=== PATIENT | female | born 1945 | race Caucasian/White ===

== ENCOUNTER 2018-04-01 22:27 | Inpatient (IN) | payer OTHER, MEDICARE ==
[2018-04-01 22:47] LABS: PLATELET COUNT 358 10^3/uL (150-400)
[2018-04-01 23:00] LABS: INR 0.91 (0.83-1.16); PROTIME(PATIENT) 12.5 SEC (12.0-15.0)
--- NOTE | 2018-04-01 23:02 | CPEKG ---
Heart Rate: 67 RR Interval: 896 P-R Interval: 252 QRSD Interval: 100 QT Interval: 416 QTC Interval: 439 P [place]: 56 QRS [place]: -23 T Wave [place]: 30 EKG Severity - ABNORMAL ECG - EKG Impression: SINUS RHYTHM EKG Impression: FIRST DEGREE AV BLOCK EKG Impression: BORDERLINE LEFT AXIS DEVIATION Electronically Signed By: Wade Antoine 02-Apr-2018 06:04:29
--- NOTE | 2018-04-01 23:03 | EDPHY ---
H & P Stated Complaint: STROKE ALERT Time Seen by Provider: 04/01/18 22:39 HPI/ROS: Chief Complaint: Facial droop, slurred speech HPI: 72-year-old woman with history of diabetes who is been in her normal state health. This evening at 10:00 p.m. Family noticed the patient developed a left facial droop and developed some slurred speech. The immediately put her in the car and brought her to the emergency department. They state that her symptoms have improved but she still seems to have a bit of garbled speech. This did occur shortly after she took her evening medications. No recent falls or injuries. She is not on any anticoagulation. No chest pain or shortness of breath. No palpitations. No nausea or vomiting. Symptoms began after she was out walking the dog. Patient currently is without complaint. ROS: 10 point Review of Systems is negative except as noted in the HPI. Social History: No smoking, no alcohol, no recreational drug use Family History: non-contributory Physical Exam: Gen: Awake, Alert, No Distress HEENT: Nose: no rhinorrhea Eyes: PERRLA, EOMI Mouth: Moist mucosa Neck: Supple, no JVD Chest: nontender, lungs clear to auscultation Heart: S1, S2 normal, no murmur Abd: Soft, non-tender, no guarding Back: no CVA tenderness, no midline tenderness Ext: no edema, non-tender Skin: no rash Neuro: See NIH stroke score - Personal History Current Tetanus/Diphtheria Vaccine: Yes Current Tetanus Diphtheria and Acellular Pertussis (TDAP): Yes - Medical/Surgical History Hx Asthma: No Hx Chronic Respiratory Disease: No Hx Diabetes: Yes Hx Cardiac Disease: Yes Hx Renal Disease: No Hx Cirrhosis: No Hx Alcoholism: No Other PMH: Diabetes, hypertension,BILAT MASSECTOMY - Social History Smoking Status: Former smoker Constitutional: Initial Vital Signs Temperature (C) 36.6 C 04/01/18 22:27 Heart Rate 70 04/01/18 22:27 Respiratory Rate 18 04/01/18 22:27 Blood Pressure 176/83 H 04/01/18 22:27 O2 Sat (%) 92 04/01/18 22:27 O2 Delivery Mode Room Air Allergies/Adverse Reactions: No Known Allergies Allergy (Unverified 04/01/18 22:40) Home Medications: Medication Instructions Recorded Atorvastatin Calcium [Lipitor 20 20 mg PO HS 02/21/16 mg (*)] Fenofibrate [Tricor 145 mg (*)] 145 mg PO HS 02/21/16 Metformin HCl [Metformin 1000 mg] 1,000 mg PO BIDMEAL 02/21/16 Metoprolol Tartrate [Lopressor 25 25 mg PO BID 02/21/16 mg (*)] buPROPion XL [Wellbutrin 150mg XL] 150 mg PO DAILY 02/21/16 Aspirin [Aspirin 81mg (*)] 81 mg PO DAILY #0 tab.chew 02/22/16 Insulin Glargine [Lantus] 0 unit SC HS 04/01/18 Metoprolol Succinate 50 mg PO 04/01/18 Valsartan [Diovan (*)] 160 mg PO DAILY 04/01/18 Medical Decision Making - Diagnostics EKG Interpretation: ECG time 2300, sinus rhythm with a rate of 67. There is a first-degree AV block. Borderline left axis deviation. No acute ST or T-wave changes. Imaging Results: Imaging Impressions Chest X-Ray 04/01/18 22:32 Impression: No acute localizing features. Head CT 04/01/18 22:32 Impression: There is no acute intracranial abnormality identified on this unenhanced CT evaluation. If there is further clinical concern regarding the patient's symptoms, MR imaging is suggested, if not otherwise contraindicated. Findings were discussed with Wade Antoine MD at 23:16, on 04/01/2018. ED Course/Re-evaluation: Patient arrived as a possible stroke alert. Her NIH score on my immediate examination was 1. Stroke alert was stood down by me. Patient went for noncontrast CT of the brain. At this time she has some perhaps mild dysarthria speech, otherwise negative NIH exam. Blood sugar was in the 200s. Plan will be to check for laboratory evaluations, confirm noncontrast CT scan of the head. If these are normal likely admission for MRI and Neurology consultation as an inpatient. [address] Symptoms have completely resolved. She is at her baseline. She is without complaint. 2320 CT scan of the head is negative. I have discussed with Dr. Apodaca. Patient's PCP. He will admit to the hospital for further workup. - Data Points Laboratory Results: Laboratory Results 04/01/18 22:35 04/01/18 22:35 04/01/18 04/01/18 04/01/18 22:36 22:35 22:35 WBC RBC Hgb POC Hgb 14.3 gm/dL gm/dL (12.6-16.3) Hct POC Hct 42 % % (38-47) MCV MCH MCHC RDW Plt Count MPV Neut % (Auto) Lymph % (Auto) Mills % (Auto) Eos % (Auto) Baso % (Auto) Nucleat RBC Rel Count Absolute Neuts (auto) Absolute Lymphs (auto) Absolute Monos (auto) Absolute Eos (auto) Absolute Basos (auto) Absolute Nucleated RBC Immature Gran % Immature Gran # PT 12.5 SEC SEC (12.0-15.0) INR 0.91 (0.83-1.16) POC Sodium 143 mEq/L mEq/L (135-145) Sodium 142 mEq/L mEq/L (135-145) POC Potassium 4.2 mEq/L mEq/L (3.3-5.0) Potassium 4.5 mEq/L mEq/L (3.3-5.0) POC Chloride 102 mEq/L mEq/L (97-110) Chloride 103 mEq/L mEq/L (97-110) Carbon Dioxide 27 mEq/l mEq/l (22-31) Anion Gap 12 mEq/L mEq/L (8-16) POC BUN 34 mg/dL H mg/dL (7-23) BUN 34 mg/dL H mg/dL (7-23) Creatinine 1.5 mg/dL H mg/dL (0.6-1.0) POC Creatinine 1.7 mg/dL H mg/dL (0.6-1.0) Estimated GFR 34 Glucose 211 mg/dL H mg/dL (70-100) POC Glucose 225 mg/dL H mg/dL (70-100) Calcium 10.1 mg/dL mg/dL (8.5-10.4) 04/01/18 04/01/18 22:35 22:34 WBC 10.60 10^3/uL H 10^3/uL (3.80-9.50) RBC 4.65 10^6/uL 10^6/uL (4.18-5.33) Hgb 13.6 g/dL g/dL (12.6-16.3) POC Hgb Hct 41.9 % % (38.0-47.0) POC Hct MCV 90.1 fL fL (81.5-99.8) MCH 29.2 pg pg (27.9-34.1) MCHC 32.5 g/dL g/dL (32.4-36.7) RDW 14.4 % % (11.5-15.2) Plt Count 358 10^3/uL 10^3/uL (150-400) MPV 10.0 fL fL (8.7-11.7) Neut % (Auto) 55.8 % % (39.3-74.2) Lymph % (Auto) 30.8 % % (15.0-45.0) Mills % (Auto) 8.1 % % (4.5-13.0) Eos % (Auto) 4.2 % % (0.6-7.6) Baso % (Auto) 0.7 % % (0.3-1.7) Nucleat RBC Rel Count 0.0 % % (0.0-0.2) Absolute Neuts (auto) 5.92 10^3/uL 10^3/uL (1.70-6.50) Absolute Lymphs (auto) 3.27 10^3/uL H 10^3/uL (1.00-3.00) Absolute Monos (auto) 0.86 10^3/uL H 10^3/uL (0.30-0.80) Absolute Eos (auto) 0.44 10^3/uL H 10^3/uL (0.03-0.40) Absolute Basos (auto) 0.07 10^3/uL 10^3/uL (0.02-0.10) Absolute Nucleated RBC 0.00 10^3/uL 10^3/uL (0-0.01) Immature Gran % 0.4 % % (0.0-1.1) Immature Gran # 0.04 10^3/uL 10^3/uL (0.00-0.10) PT INR POC Sodium Sodium POC Potassium Potassium POC Chloride Chloride Carbon Dioxide Anion Gap POC BUN BUN Creatinine POC Creatinine Estimated GFR Glucose POC Glucose 203 mg/dL H mg/dL (70-100) Calcium Medications Given: Enoxaparin Sodium (Lovenox) 80 mg SC Q12H MARIZA Stop: 09/29/18 00:59 Last Admin: 04/02/18 02:04 Dose: Not Given Dextrose/Sodium Chloride (D5w 1/2 Ns) 1,000 mls @ 125 mls/hr IV CONT MARIZA Stop: 09/29/18 00:59 Last Admin: 04/02/18 01:48 Dose: 1,000 mls Temazepam (Restoril) 15 mg PO HS PRN PRN Reason: Sleep/Insomnia Stop: 09/29/18 01:00 Last Admin: 04/02/18 01:41 Dose: 15 mg Discontinued Medications Enoxaparin Sodium (Lovenox) 80 mg SC BID MARIZA Stop: 09/29/18 00:59 Last Admin: 04/02/18 01:40 Dose: 80 mg Sodium Chloride (Ns) 1,000 mls @ 0 mls/hr IV EDNOW ONE; Wide Open PRN Reason: Protocol Stop: 04/02/18 00:05 Last Admin: 04/02/18 00:08 Dose: 1,000 mls Metoprolol Tartrate (Lopressor) 25 mg PO ONCE ONE Stop: 04/02/18 00:54 Last Admin: 04/02/18 01:41 Dose: 25 mg Point of Care Test Results: 04/01/18 04/01/18 22:34 22:36 POC Sodium 143 POC Potassium 4.2 POC Chloride 102 POC BUN 34 H POC Creatinine 1.7 H POC Glucose 203 H 225 H Departure - Departure Disposition: [facility] In[facility] Acute Clinical Impression: Transient cerebral ischemia Condition: Fair NIH Stroke Scale Date of Exam: 04/01/18 Time of Exam: 22:30 Level of Consciousness: Alert LOC Questions: Answers Both LOC Commands: Performs Both Correctly Best Gaze: Normal Visual: No Visual Loss Facial Palsy: Normal Motor Arm-Left: No Drift Motor Arm-Right: No Drift Motor Leg-Left: No Drift Motor Leg-Right: No Drift Limb Ataxis: Absent Sensory: Normal Best Language: No Aphasia Dysarthria: Mild/Mod Dysarthria Extinction and Inattention (Neglect): No Abnormality NIH Scale Score: 1
[2018-04-02] MEDS ORDERED: NS 1,000 ML IV ONE (00:04)
[2018-04-02] MEDS ORDERED: METOPROLOL TARTRATE 25 MG TAB PO ONE (00:53)
[2018-04-02] MEDS ORDERED: ENOXAPARIN 80 MG/0.8 ML SYR SC SCH (01:00)
[2018-04-02] MEDS ORDERED: D5W 1/2 NS 1,000 ML IV SCH (01:00)
[2018-04-02] MEDS ORDERED: TEMAZEPAM 15 MG CAP PO PRN (01:01)
[2018-04-02] MEDS: ENOXAPARIN 80 MG/0.8 ML SYR SC SCH ×3 (02:04→18:11)
--- NOTE | 2018-04-02 03:54 | CPEKG ---
Heart Rate: 68 RR Interval: 882 QRSD Interval: 100 QT Interval: 460 QTC Interval: 490 QRS [place]: -18 T Wave [place]: 25 EKG Severity - ABNORMAL ECG - EKG Impression: ATRIAL FLUTTER, A-RATE 245 EKG Impression: PROBABLE LEFT VENTRICULAR HYPERTROPHY Electronically Signed By: Alexi Estrada 04-Apr-2018 07:35:35
[2018-04-02] MEDS ORDERED: LORazepam 1 MG TAB PO ONE (07:32)
--- NOTE | 2018-04-02 09:10 | GHP ---
[f rep st] HISTORY AND PHYSICAL DATE OF ADMISSION: 04/01/2018 REASON FOR ADMISSION: TIA. HISTORY: The patient is a 72-year-old female, who was in her usual state of health with diabetes, hy perlipidemia, and subclinical atherosclerosis, who developed slurred speech and a little bit of a fac ial droop, presented to the emergency room and over the next 30 minutes or so, these symptoms complet maurice resolved. She has a history of atrial fibrillation following a video-assisted thoracoscopy a few years ago, but workup was unremarkable. She has had no atrial fibrillation since. There has been s ome question about the possibility of sleep apnea, but she seems to think that this diagnostic possib ility has been ruled out. She has a history of breast cancer and 2-1/2 years ago during her thoracos copy was found to have a small metastasis from her breast cancer. She has no further evidence of steven ast cancer disease. She is on medications for hypertension as well as diabetes. She is also on Lipi tor. She also takes aspirin. She is not on any more powerful anticoagulants. PHYSICAL EXAM: Reveals blood pressure 176/83 when she presented with a pulse of 70, respiratory rate 18, oxygen saturation 92% on room air. Temperature is 97.9. GENERAL: She is alert, oriented, and appropriate. HEENT: Pupils equal and reactive. Throat was normal. LUNGS: Clear. HEART: Regular rate and rhythm without murmur. ABDOMEN: Nontender. EXTREMITIES: She has no peripheral edema. S he moves all extremities well. Extremities are warm and dry. She has excellent strength in her uppe r as well as lower extremities. NEURO: Speech is normal, non slurred. She does describe some dizziness which has been going on for the last month, but does not appear to b e or feel to be any worse tonight. Blood work reveals some level of dehydration with an elevated BUN and creatinine, with a creatinine o f up to 1.7 by bedside chem stick, 1.5 by laboratory analysis. Blood sugar is 203. Sodium 142, pota ssium 4.5, BUN 34. Her BUN and creatinine have never been this high. She had a slightly elevated cr eatinine of 1.3 in November and BUN was in the upper 20s. IMPRESSION: Symptoms of transient ischemic attack with no bleed on CT scan. The symptoms appear to have resolved. With a history of atrial fibrillation, I am concerned about the possibility of her be ing in atrial fibrillation earlier today and throwing a clot. She did say she had some sense of palp itations earlier in the day. She is dehydrated, although she is mildly hypertensive. I will give he r an extra 25 mg of metoprolol tartrate now. We will get her routine medications started. We will c heck blood sugars regularly with meals and at bedtime. Will arrange for a 2D echo of the heart and a n MRA and MRI of the brain in the morning. Considering her history of metastatic breast cancer to he r lungs, I think an additional MRI of the brain would be appropriate, even though she did have a rela tively normal CAT scan today. /[id number]/MODL
[2018-04-02] MEDS ORDERED: ONDANSETRON 4 MG/2 ML VIAL IVP PRN (09:15)
[2018-04-02] MEDS ORDERED: ACETAMINOPHEN 325 MG TAB PO PRN (09:15)
[2018-04-02] MEDS ORDERED: D50W 25 GM/50 ML SYR IVP PRN (09:15)
[2018-04-02] MEDS ORDERED: ONDANSETRON DISINTEGRATING 4 MG TAB PO PRN (09:15)
[2018-04-02] MEDS ORDERED: INSULIN GLARGINE HUM REC ANLOG 60 UNIT SQ SCH (09:15)
[2018-04-02] MEDS ORDERED: DILTIAZEM 125 MG in D5W 125 ML IV ONE (10:03)
--- NOTE | 2018-04-02 10:03 | SOAPPROG ---
SOAP Progress Note Assessment/Plan: Assessment: 72 yo female w/ TIA - had l facial droop and slurred speech for a few min, nl upon arrival to ED, head CT neg, MRI/A pending, h/o lone a fib after VATS a couple years ago, currently w/ a flutter. 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 -HTN- hasn't rec'd am metoprolol or valsartan, will start on dilt gtt while awaiting cardiology -DM - stopped D5 recheck bmp, hold metformin, will give lantus now, fsbs checks -CAD - cont statin, asa, lovenox for now but will change to DOAC -h/o brca - MRI to r/o met to brain as etiology for TIA, f/b Dr Burr. -dvt proph- lovenox -dispo - expect at least additional 24 hours w/ monitoring on tele, cardiology intervention, monitor on tele w/ rhythm changes Plan: 04/02/18 09:54 Subjective: Doing ok, in good spirits w/ dtrs at bedside, no s/sx of TIA currently Objective: Vital Signs Temp Pulse Resp BP Pulse Ox 36.6 C 75 12 173/125 H 98 04/02/18 07:36 04/02/18 09:29 04/02/18 09:29 04/02/18 09:29 04/02/18 09:29 Laboratory Results 04/02/18 09:20 04/02/18 09:20 PT 12.5 SEC (12.0-15.0) 04/01/18 22:35 INR 0.91 (0.83-1.16) 04/01/18 22:35 Gen: A&O x 4, pleasant female Heent: perr, eomi Neck: soft supple, can't appreciate facial droop Chest: cta b CV: irregularly irref Abd: soft nt/nd Ext; no edema Neuro: alert, appropriate, no facial asymmetry appreciated, speech nl, moving all extremities appropriately ICD10 Worksheet Patient Problems: Problems Problem Status Onset Pneumonia Acute Hypoglycemia Acute Hypothermia Acute Transient cerebral ischemia Acute
--- NOTE | 2018-04-02 10:18 | ECHO ---
[email or web address] [address] Main: [phone] Fax: Transthoracic Echocardiogram Name: KAREEN ARORA MR#: [id number] Study Date: 04/02/2018 Study Time: 08:18 AM Date of : 1945 Age: 72 year(s) Height: 167.6 cm (66 in.) Weight: 87.09 kg (192 lb.) BSA: 1.97 m2 Gender: Female Examination: Echo Indication: New onset Atrial Fibrillation with TIA Image Quality: Contrast: Requested by: Duy Apodaca BP: 146 mmHg/76 mmHg Heart Rate: Rhythm: Atrial fibrillation Indication: New onset Atrial Fibrillation with TIA Procedure Staff Glass Handler: Troy Rodriguez RDCS Reading Physician: Requesting Provider: Measurements: Chambers Valvular Assessment AV/MV Valvular Assessment TV/PV Normal Normal Normal Name Value Range Name Value Range Name Value Range Ao Zaida (MM): 3.4 cm (2.2 cm-3.7 AV Vmax: 1.05 m/s (1 m/s-1.7 PV Vmax: 1.00 m/s (0.6 m/s-0.9 cm) m/s) m/s) IVSd (2D): 0.7 cm (0.6 cm-1.1 AV maxP mmHg ( - ) PV PGmax: 4 mmHg ( - ) cm) LVOT Vmax: 0.80 m/s (0.7 m/s-1.1 LVDd (2D): 4.9 cm (3.9 cm-5.3 m/s) cm) MV E Vmax: 1.05 m/s ( - ) LVDs (2D): 2.9 cm (2.1 cm-4 cm) LVPWd (2D): 1.1 cm ( - ) LVEF (2D): 71 (>=54 %) Continued Measurements: Chambers Valvular Assessment AV/MV Name Value Name Value LADs Lon.6 cm MV E' Septal: 0.08 m/s LA Area: 18.0 cm2 MV E/E' Septal: 12.80 LA Volume: 57 ml MV E/E' Lateral: 27.60 LA Volume Index: 28.9 ml/m2 Findings: Left Ventricle: Normal size left ventricle. No LV hypertrophy. Normal global systolic LV function. EF is 71 %. No regional wall motion abnormality. Diastolic dysfunction is present. . The rhythm is atrial fibrillation.. Right Ventricle: Patient: KAREEN ARORA Study Date: 04/02/2018 Page 1 of 2 08:18 AM Normal size right ventricle. Left Atrium: The left atrium is normal in size. Right Atrium: The right atrium is normal in size. Mitral Valve: Mild mitral valve leaflet calcification is present. No mitral stenosis is present. Trivial mitral valve regurgitation. Aortic Valve: Mild aortic cusp calcification is noted. No aortic valve stenosis is present. Trivial aortic valve regurgitation. Tricuspid Valve: The tricuspid valve is normal in appearance and function. Pulmonic Valve: The pulmonic valve is normal in appearance and function. Aorta: The aorta is normal. Pericardium: No pericardial effusion. (No Signature Object) Patient: KAREEN ARORA Study Date: 04/02/2018 Page 2 of 2 08:18 AM D:_[id number]
[2018-04-02] MEDS ORDERED: MIDAZOLAM 2 MG/2 ML VIAL IVP ONE (11:33)
[2018-04-02] MEDS ORDERED: fentaNYL 100 MCG/2 ML INJ IVP ONE (11:33)
[2018-04-02] MEDS ORDERED: BENZOCAINE UNIT DOSE SPRAY HURRICAINE MM ONE (11:33)
[2018-04-02] MEDS ORDERED: ATROPINE SULFATE 1 MG/10 ML SYR IVP ONE (11:33)
[2018-04-02] MEDS ORDERED: NS 500 ML IV ONE (11:33)
[2018-04-02] MEDS ORDERED: ETOMIDATE 40 MG/20 ML INJ IV ONE (12:30)
[2018-04-02] MEDS ORDERED: fentaNYL 100 MCG/2 ML INJ ONE ×2 (12:32→14:26)
[2018-04-02] MEDS ORDERED: MIDAZOLAM 2 MG/2 ML VIAL ONE (12:32)
[2018-04-02] MEDS ORDERED: ATROPINE SULFATE 1 MG/10 ML SYR ONE (12:32)
--- NOTE | 2018-04-02 14:13 | PDHPUP ---
History & Physical Update H&P update statement: This history and physical update is based on an assessment of the patient which was completed after admission or registration (within 24 hours), but prior to the surgery/procedure. H&P update: H&P reviewed & patient examined, changes noted (I spoke with Dr. Oziel Hoyos. The patient had a true stroke. If the patient is found to have a clot on KYLE, then we will proceed with full dose anticoagulation immediately as the risk of recurrent stroke would likely be greater than that of hemorrhagic conversion. If there is no evidence of clot then we will proceed with conversion and plan to start anticoagulation Friday. )
--- NOTE | 2018-04-02 14:14 | PDPROPOC ---
Sedation Plan of Care Sedation Plan of Care: vital signs stable, mental status noted, patient educated of risks, benefits, alternatives, patient can tolerate sedation ASA Classification: ASA 4 Planned drugs: fentanyl, midazolam, other (Etomidate) Mallampati Score: Class 3 Mallampati Reference Image: Patient passed 3-3-2 rule?: No
--- NOTE | 2018-04-02 14:54 | PDTEE1 ---
KYLE Cardioversion Procedure Procedure: electrical cardioversion, transesophageal echo Indications: other (atrial flutter) Consent: signed and in chart Anticoagulation: other (Contraindicated until Friday evening because of Friday stroke.) Procedural Details: Pads were placed in anterior-posterior position. KYLE probe was advanced and standard images obtained. There is no evidence of left atrial or left atrial appendage thrombus. Synchronized cardioversion attempt #1: 200J Results: normal sinus rhythm Conclusions: successful KYLE cardioversion Conclusion Comment: After informed consent was obtained and n.p.o. status was confirmed, the back of the patient's throat was numbed with 1% cetacaine solution. The KYLE probe was advanced heather the patient's esophagus and the ultrasound reviewed without evidence of left atrial clot or thrombus. We proceeded with elective DC cardioversion with 200 J of biphasic countershock. The patient was succesfully returned to v-paced normal sinus rhythm without complication. Patient Problems: Problems Problem Status Onset Transient cerebral ischemia Acute Hypoglycemia Acute Hypothermia Acute Pneumonia Acute
--- NOTE | 2018-04-02 15:08 | CPEKG ---
Heart Rate: 60 RR Interval: 1000 P-R Interval: 248 QRSD Interval: 96 QT Interval: 440 QTC Interval: 440 P [place]: 45 QRS [place]: -21 T Wave [place]: 30 EKG Severity - ABNORMAL ECG - EKG Impression: SINUS RHYTHM EKG Impression: FIRST DEGREE AV BLOCK EKG Impression: BORDERLINE LEFT AXIS DEVIATION Electronically Signed By: Anoop Bailey 03-Apr-2018 07:34:05
[2018-04-02] MEDS: INSULIN GLARGINE 100 UNITS/ML UNIT SC SCH (15:32)
--- NOTE | 2018-04-02 15:48 | GCON ---
[f rep st] CONSULTATION NEUROLOGY CONSULTATION DATE OF CONSULTATION: 04/02/2018 CHIEF COMPLAINT: Stroke. HISTORY OF PRESENT ILLNESS: The patient is a very pleasant 72-year-old lady who has a history of perioperative atrial fibrillation, atrial flutter a couple of years ago for which she was treated with transient oral anticoagulation. She was then on a daily anti-platelet therapy. Last night at around 10:00 p.m. , she had hyperacute onset dysarthria and was brought to the emergency department. By the time she got to the ER, the symptoms were already resolving and almost completely resolved during her stroke evaluation; therefore, she was not a thrombolysis candidate. She was admitted for further evaluation. In the emergency department, she was found to be in atrial flutter, which is ongoing. She had a MRA of the head, which showed no acute thrombosis in her cranial vessels. She had an MRI brain, which showed an acute infarct on the diffusion-weighted imaging in the right subfrontal region measuring 1.8 x 1 cm. The patient also noted to me that others noted left facial droop, which resolved while she was in the ER. She has had essentially complete resolution of symptoms according to the patient. REVIEW OF SYSTEMS: Done for 10 systems and only pertinent to the HPI. PAST MEDICAL/SOCIAL/FAMILY HISTORY/HOME MEDICATIONS/ALLERGIES: See Dr. Duy Apodaca's H and P dated 04/02/2018. PHYSICAL EXAMINATION: VITAL SIGNS: Blood pressure is 138/86, temperature 36.6 , heart rate 65, respirations 18. GENERAL: This is a very pleasantly lady in no acute distress. NEUROLOGIC: Higher mental function: Awake and alert. No aphasia. Cranial nerve exam: No significant facial droop on exam now. No dysarthria. Extraocular movements are full. On motor exam, there is some slight weakness in the left arm and left leg, otherwise, no weakness on the right. Sensory exam is normal to light touch. Coordination is normal in all extremities. IMPRESSION: 1. Right subfrontal stroke. 2. Atrial flutter/fibrillation. PLAN: Based on the entire clinical history, it appears the patient had a cardioembolic stroke from atrial fibrillation/flutter. This occurred while on anti-platelet therapy. The patient is scheduled for a KYLE guided cardioversion. If there is any intracardiac thrombus/sludging or echogenic material whatsoever, she will not be cardioverted. She will remain on anticoagulation until there is evidence that there is no clot within the cardiac chambers prior to cardioversion. If there is no sludging, clot etc. within the heart, then she will proceed with cardioversion. In the latter scenario, if she is cardioverted, then I would recommend holding off on full-dose anticoagulation for 72 hours after stroke to minimize risk of hemorrhagic conversion, which would be the evening of April 04, 2018. Discussed at length with her primary care physician Dr. Tyra Rai. She agrees to the plan. If there is evidence of any kind of thrombus in the cardiac chambers, then she will remain on anticoagulation until there is KYLE evidence that there is no longer any thrombotic material within the heart prior to cardioversion. The patient and her family were counseled at great length regarding this. Plan was discussed at great length with her PCP and Cardiology. Lastly, she will need outpatient physical and speech therapy. No further recommendations. We will continue to follow this very pleasant patient p.r.n. Please do not hesitate to call if there are any questions regarding our recommendations or changes in neurologic status with this very pleasant patient. seventy total minutes were spent on the floor in the CVC unit , along with reviewing records, and coordination of care, along with direct counseling. Thank you for the consultation. /[id number]/MODL JAZMYNE
--- NOTE | 2018-04-02 17:29 | CPEKG ---
Heart Rate: 37 RR Interval: 1622 P-R Interval: 236 QRSD Interval: 88 QT Interval: 448 QTC Interval: 352 P [place]: 19 QRS [place]: -21 T Wave [place]: 6 EKG Severity - ABNORMAL ECG - EKG Impression: Mobitz type II 2nd degree AV block EKG Impression: BORDERLINE LEFT AXIS DEVIATION Electronically Signed By: Anoop Bailey 03-Apr-2018 07:33:44
[2018-04-02] MEDS: INSULIN LISPRO 100 UNIT/ML SC SCH (18:04)
[2018-04-02] MEDS: METOPROLOL SUCCINATE XR 25 MG TAB PO SCH (18:05)
[2018-04-02] MEDS ORDERED: VALSARTAN 160 MG TAB PO SCH (21:00)
[2018-04-02] MEDS ORDERED: FENOFIBRATE 145 MG TAB PO SCH (21:00)
[2018-04-02] MEDS ORDERED: ATORVASTATIN CALCIUM 20 MG TAB PO SCH (21:00)
[2018-04-02] MEDS ORDERED: ASPIRIN 325 MG TAB PO SCH (21:00)
[2018-04-03 05:17] LABS: PLATELET COUNT 318 10^3/uL (150-400)
[2018-04-03] MEDS: ENOXAPARIN 80 MG/0.8 ML SYR SC SCH (05:26)
--- NOTE | 2018-04-03 08:14 | CPEKG ---
Heart Rate: 81 RR Interval: 741 QRSD Interval: 98 QT Interval: 424 QTC Interval: 493 QRS [place]: -22 T Wave [place]: 33 EKG Severity - ABNORMAL ECG - EKG Impression: ATRIAL FLUTTER, A-RATE 258 EKG Impression: BORDERLINE LEFT AXIS DEVIATION Electronically Signed By: Alexi Estrada 04-Apr-2018 07:35:06
[2018-04-03 08:44] VITALS: BP 105/79
[2018-04-03] MEDS: METOPROLOL SUCCINATE XR 25 MG TAB PO SCH (08:46)
[2018-04-03] MEDS: INSULIN LISPRO 100 UNIT/ML SC SCH (08:47)
[2018-04-03] MEDS: INSULIN GLARGINE 100 UNITS/ML UNIT SC SCH (08:48)
[2018-04-03] MEDS ORDERED: buPROPion XL 150 MG TAB PO SCH (09:00)
--- NOTE | 2018-04-03 09:51 | SOAPPROG ---
SOAP Progress Note Assessment/Plan: Assessment: 72 yo female w/ TIA - had l facial droop and slurred speech for a few min, nl upon arrival to ED, head CT neg, MRI/A pending, h/o lone a fib after VATS a couple years ago, currently w/ a flutter. 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 -HTN- hasn't rec'd am metoprolol or valsartan, will start on dilt gtt while awaiting cardiology -DM - stopped D5 recheck bmp, hold metformin, will give lantus now, fsbs checks -CAD - cont statin, asa, lovenox for now but will change to DOAC -h/o brca - MRI to r/o met to brain as etiology for TIA, f/b Dr Burr. -dvt proph- lovenox -dispo - expect at least additional 24 hours w/ monitoring on tele, cardiology intervention, monitor on tele w/ rhythm changes Plan: 04/02/18 09:54 04/03/18 09:47 72 yo female w/ R subfrontal small CVA in setting of a flutter - s/p KYLE w/ cardioversion and no clot yesterday - -will initiate anticoag on Friday evening per neuro to avoid risk of conversion to hemorrhagic clot, rec PT and cardiac rehab appreciate input of Dr Ludwig. -a flutter s/p cardioversion w/ some ectopy overnight - awaiting cardiology Dr Rodriguez to review tele and ekg's overnight, appreciate input, is on metoprolol and valsartan, will be initiated on eliquis 04/05/18 in evening per neuro rec above. -dm - cont on lantus/lispro, will resume metformin tomorrow -h/o cad - cont statin, fish oil, d will be on eliquis, rec cardiac rehab -dispo - d/c home pending cardiology review of tele/ekg's, will f/u with PCP next week Subjective: Doing well, was worn out yesterday, no c/o anything this am except wanting to go home Objective: Vital Signs Temp Pulse Resp BP Pulse Ox 36.7 C 61 20 105/79 97 04/03/18 08:00 04/03/18 08:00 04/03/18 08:00 04/03/18 08:00 04/03/18 08:00 Laboratory Results 04/03/18 05:00 04/03/18 05:00 04/02/18 04/03/18 04/04/18 05:59 05:59 05:59 Intake Total 650 Output Total 1 Balance 649 PT 12.5 SEC (12.0-15.0) 04/01/18 22:35 INR 0.91 (0.83-1.16) 04/01/18 22:35 Gen: a&o, pleasant, up in chair Heent: perr, eomi Neck: soft supple Chest: cta b CV: rrr nl s1 s2 Abd: soft nt nd Ext: no edema Neuro: a&ox 4, appropriate no facial droop no speech deficits eating w/o problems moving all ext appropriately - Pending Discharge Pending Discharge Within 24 Hours: Yes Pending Discharge Date: 04/04/18 Pending Discharge Time: 11:00 ICD10 Worksheet Patient Problems: Problems Problem Status Onset Pneumonia Acute Hypoglycemia Acute Hypothermia Acute Transient cerebral ischemia Acute
[2018-04-03] MEDS ORDERED: ASPIRIN 325 MG TAB PO SCH (10:00)
--- NOTE | 2018-04-03 19:19 | GDS ---
[f rep st] DISCHARGE SUMMARY CHIEF COMPLAINT: Facial slurring. HPI: The patient is a pleasant 72-year-old female, who was in her usual state of health at home when all of a sudden at night her daughter noticed that left side of her face was drooping and when she went to speak, her speech was garbled. She stayed like this for about 5 minutes and then the symptoms mostly resolved. They, in this time period, had put her in the car and started bringing her to the ER for evaluation. Upon arrival to the ER, no major deficits were appreciated. Head CT done which was negative for hemorrhage or other intracranial abnormality. She has a history of diabetes and her blood sugar was around 200. The rest of her labs were normal and as she was being evaluated in the ER, her rhythm went from sinus into atrial flutter. She was continued in the ER overnight as there were no rooms on telemetry or step-down. Her rhythm continued in atrial flutter, so in the morning a cardiology consultation was placed to evaluate with KYLE for clot thrombus and cardioversion if clear, or other abnormalities and Dr. Rodriguez was in agreement to proceed with the plan. In the interim, Neurology, Dr. Oziel Hoyos, evaluated the patient, and by this time her MRI/MRA had returned, which unfortunately did show a small right-sided subfrontal CVA. Dr. Hoyos was in agreement with KYLE to assess etiology and recommended the patient not have anticoagulation for 72 hours unless there was active clot due to risk of conversion from thrombotic stroke to hemorrhagic. The KYLE was done and fortunately no clot present. She does have a small PFO and an intraatrial septal aneurysmal dilatation. She was then cardioverted successfully from atrial flutter back into normal sinus rhythm. She was then monitored overnight on telemetry. She did have some ectopy, but remained in sinus and she was doing well the next morning. Speech Therapy evaluated her and felt there were no deficits. She was cleared from PT as well and recommended for conditioning and followup to sign up for cardiac rehabilitation. MEDICATIONS: She will be discharged with new medication Eliquis 5 mg p.o. b.i.d. starting on Friday night, April 05, which would be 72 hours after the initial event per Neuro recommendations. Other medications on discharge include Tricor 145 mg p.o. h.s., Wellbutrin 150 mg p.o. daily, metformin 1000 p.o. b.i.d., atorvastatin 20 mg p.o. h.s., valsartan 160 mg p.o. h.s., metoprolol 25 mg p.o. b.i.d., insulin Lantus 60 units subcu daily, and insulin lispro 10-15 units subcu t.i.d. with meals, aspirin 81 mg p.o. b.i.d., and Eliquis as discussed above. FOLLOWUP: Patient will have followup with PCP, Dr. Tyra Rai, next week, and she will sign out for cardiac rehabilitation upon discharge from the hospital, and it is recommended that she participate in this 2-3 times per week. We will have her follow up with Cardiology as well as needed. We will reassess EKG in office next week. /[id number]/MODL [email or web address]
[2018-04-03] MEDS ORDERED: ASPIRIN 81 MG CHEWABLE TAB PO SCH (21:00)
[2018-04-04] MEDS ORDERED: APIXABAN 5 MG TAB PO SCH (21:00)
== END 2018-04-03 11:45 | disposition home or self-care (01) | DRG 65 ==
LOC: OBSVTOIN 04-02 00:04 → F2N 04-02 16:18
PROVIDERS: ADMIT Internal Medicine; ATTEND Internal Medicine
DX: I63.9 Cerebral infarction, unspecified (principal); I48.92 Unspecified atrial flutter; I48.91 Unspecified atrial fibrillation; R29.701 NIHSS score 1; E11.9 Type 2 diabetes mellitus without complications; I25.10 Atherosclerotic heart disease of native coronary artery without angina pectoris; I10 Essential (primary) hypertension; E78.5 Hyperlipidemia, unspecified; I25.2 Old myocardial infarction; Z85.3 Personal history of malignant neoplasm of breast; Z79.82 Long term (current) use of aspirin; Z79.02 Long term (current) use of antithrombotics/antiplatelets; Z87.891 Personal history of nicotine dependence
CPT/HCPCS: 82947-QW; 92523-GN; G9162-GN-CH; G9163-GN-CH; G9164-GN-CH; J0461; J1650; J1815; J2250; J2405; J3010

== ENCOUNTER → 2018-04-23 | Outpatient (CLI) | payer OTHER, MEDICARE | LOC: BHFA 14:00 | PROVIDERS: ATTEND Internal Medicine Cardiovascular Disease | DX: I48.0 Paroxysmal atrial fibrillation (principal); I25.10 Atherosclerotic heart disease of native coronary artery without angina pectoris; I10 Essential (primary) hypertension ==

== ENCOUNTER 2018-05-25 08:28 | Observation (INO) | payer OTHER, MEDICARE ==
[2018-05-25] MEDS ORDERED: BACITRACIN IRRIGATION/NS 50,000 UNITS/1,000 ML BTL IRR ONE (08:36)
[2018-05-25] MEDS ORDERED: ceFAZolin 2 GM/DEXTROSE 100 ML IV ONE (08:36)
[2018-05-25] MEDS ORDERED: NS 1,000 ML IV ONE (08:36)
--- NOTE | 2018-05-25 08:58 | CPEKG ---
Heart Rate: 64 RR Interval: 938 P-R Interval: 248 QRSD Interval: 98 QT Interval: 432 QTC Interval: 446 P [place]: 37 QRS [place]: -20 T Wave [place]: 16 EKG Severity - ABNORMAL ECG - EKG Impression: SINUS RHYTHM EKG Impression: FIRST DEGREE AV BLOCK EKG Impression: BORDERLINE LEFT AXIS DEVIATION Electronically Signed By: Evangelista Rico 28-May-2018 16:18:20
[2018-05-25 09:20] LABS: PLATELET COUNT 317 10^3/uL (150-400)
[2018-05-25 09:26] LABS: INR 0.95 (0.83-1.16); PROTIME(PATIENT) 12.9 SEC (12.0-15.0)
--- NOTE | 2018-05-25 09:38 | PDGENHP ---
History & Physical Chief Complaint: symptomatic bradycardia Relevant Physical Exam: s1s2 rrr cta ao3 Cardiorespiratory Assessment: Symptomatic bradycardia with >5 s pauses. Plan Micra leadless pacemaker
[2018-05-25] MEDS ORDERED: LIDOCAINE 1% 300 MG/30 ML SDV ONE (10:59)
[2018-05-25] MEDS ORDERED: BUPIVACAINE 0.75% 10 ML SDV ONE (11:00)
[2018-05-25] MEDS ORDERED: IOPAMIDOL (ISOVUE-300) 100 ML BTL ONE (11:19)
[2018-05-25] MEDS ORDERED: MIDAZOLAM 2 MG/2 ML VIAL IVP ONE (11:21)
[2018-05-25] MEDS ORDERED: MIDAZOLAM 2 MG/2 ML VIAL ONE (11:21)
--- NOTE | 2018-05-25 11:22 | PDANEPAE ---
ANE History of Present Illness afib ANE Past Medical History - Cardiovascular History Hx Hypertension: Yes Hx Arrhythmias: Yes - Pulmonary History Hx Oxygen in Use at Home: No Hx Sleep Apnea: No - Neurologic History Hx Cerebrovascular Accident: Yes - Endocrine History Hx Diabetes: Yes - Chronic Pain History Chronic Pain: No ANE Review of Systems Review of Systems: ANE Patient History - Allergies Allergies/Adverse Reactions: nickel Allergy (Verified 05/24/18 10:58) - Home Medications Home Medications: Atorvastatin Calcium [Lipitor 20 mg (*)] 20 mg PO HS 02/21/16 [Last Taken ] Fenofibrate [Tricor 145 mg (*)] 145 mg PO HS 02/21/16 [Last Taken 04/01/18] Metformin HCl [Metformin 1000 mg] 1,000 mg PO BID 02/21/16 [Last Taken 04/01/18 21:00] buPROPion XL [Wellbutrin 150mg XL] 150 mg PO DAILY 02/21/16 [Last Taken 04/01/18 ] Valsartan [Diovan (*)] 160 mg PO HS 04/01/18 [Last Taken 04/01/18] Insulin Glargine,Hum.rec.anlog [Lantus Solostar] 60 unit SQ DAILY 04/02/18 [ Last Taken 04/01/18] Insulin Lispro [Humalog] 10 - 15 unit SQ TIDMEAL 04/02/18 [Last Taken 04/01/18 11:00 15 units] Metoprolol Succinate Xr [Toprol Xl 25 mg (*)] 25 mg PO BID 04/02/18 [Last Taken 04/01/18 21:00] Apixaban [Eliquis] 5 mg PO BID 05/24/18 [Last Taken 05/23/18 09:00] Aspirin EC [Aspirin EC 81 mg (*)] 81 mg PO DAILY 05/24/18 [Last Taken Unknown] - Smoking Hx Smoking Status: Former smoker ANE Labs/Vital Signs - Labs Result Diagrams: 05/25/18 09:05 05/25/18 09:05 ANE Physical Exam - Airway Neck exam: FROM Mallampati Score: Class 2 Mouth exam: poor dentition - Pulmonary Pulmonary: no respiratory distress - Cardiovascular Cardiovascular: regular rate and rhythym - ASA Status ASA Status: III ANE Anesthesia Plan Anesthesia Plan: general endotracheal anesthesia
[2018-05-25] MEDS ORDERED: HEPARIN 10,000 UNIT/10 ML MDV (1,000 UNIT/ML) ONE (11:30)
[2018-05-25] MEDS ORDERED: PROPOFOL 200 MG/20 ML VIAL ONE (11:30)
[2018-05-25] MEDS ORDERED: fentaNYL 100 MCG/2 ML INJ ONE (11:30)
[2018-05-25] MEDS ORDERED: ROCURONIUM 50 MG/5 ML VIAL ONE (12:42)
[2018-05-25] MEDS ORDERED: ONDANSETRON 4 MG/2 ML VIAL ONE (12:42)
[2018-05-25] MEDS ORDERED: ePHEDrine SULFATE 25 MG/5 ML SYR ONE (12:42)
[2018-05-25] MEDS ORDERED: PHENYLEPHRINE HCL 100 MCG/ML SYR ONE (12:42)
[2018-05-25] MEDS ORDERED: DEXAMETHASONE 4 MG/ML VIAL ONE (12:42)
[2018-05-25] MEDS ORDERED: SUGAMMADEX SODIUM 200 MG/2 ML VIAL IVP ONE (12:42)
[2018-05-25] MEDS ORDERED: PROTAMINE SULFATE 50 MG/5 ML VIAL IVP ONE (12:53)
--- NOTE | 2018-05-25 13:21 | EPPROC ---
Electrophysiology Procedure Note: IMPLANTATION OF MEDTRONIC MICRA LEADLESS PACEMAKER Indication 5 s pause during sinus rhythm, patient needs beta eloise for AFIB with RVR Patient was brought to the EP lab in fasting nonsedated state. Anesthesiologist Dr. Rajesh Wynne administered general anesthesia. Right femoral vein was accessed using modified Seldinger technique under ultrasound guidance. A [id number] stitch was placed around the wire. 1 cm incision was made at the entry site and dilated appropriately. 8 Gabonese sheath was placed in the right femoral vein. Venogram was done to confirm appropriate size of vein for large sheath and to rule out anatomic aberrations. His catheter was advanced through 8F sheath and advanced to His bundle to assess RA and RV anatomy, it was then removed. All sheath and catheter manipulations were performed under biplane fluoroscopy. Heparin 5000 units was administered intravenously. Moreover heparinized saline was infused through the side port of the Micra sheath at 150 mL/hour. 0.035 in J guidewire was advanced to the superior vena cava. Over this a 5 Gabonese straight glide catheter was advanced into the superior vena cava. J guidewire was exchanged for a Lunderquist stiff guidewire. Tract was pre-dilated with 14 and 20 Fr dilators. Micra 27 Fr sheath was flushed and advanced to the mid right atrium under fluoroscopy and the guidewire and dilator were removed. Micra delivery system was flushed according to instructions and advanced into the Micra sheath. Micra sheath was pulled back into the inferior vena cava. Micra delivery system was advanced through the tricuspid valve into the right ventricle. Appropriate location for pacemaker placement was identified. Right ventriculogram was performed in two views. Delivery system was advanced further , device was deployed. Multiple cine - angiography views were obtained during tug test to confirm that 3 of 4 tines were appropriately deployed. Device parameters were checked and found to be excellent. Device parameters were re-checked after 5 min and since they were stable, the retaining suture was cut and gently pulled out. Device remained in stable location after suture was removed. Device parameters remained unchanged with expected slight increase in impedance. 27 Gabonese sheath was removed and figure of 8 suture was applied around the femoral access site. Manual pressure was also applied. Patient left the EP lab in stable condition. There were no immediate complications. Device Medtronic Micra [id number] SN [id number] Placement RV Septum R wave 11.9 mV Impedance 920 ohm Threshold 0.38 V 0.24 ms Pacing mode VVI 50 ppm Patient Problems: Problems Problem Status Onset Bradycardia Acute Pneumonia Acute Hypoglycemia Acute Hypothermia Acute Transient cerebral ischemia Acute
--- NOTE | 2018-05-25 13:26 | POSTANESTH ---
Post Anesthetic Evaluation Cardiovascular Status: Normal, Stable Respiratory Status: Normal, Stable Level of Consciousness/Mental Status: Can Participate in Eval Pain Control: Adequate, Prn Tx Ordered Nausea/Vomiting Control: Adequate, Prn Tx Ordered Complications Possibly Related to Anesthesia: None Noted
--- NOTE | 2018-05-25 14:46 | CPEKG ---
Heart Rate: 63 RR Interval: 952 P-R Interval: 264 QRSD Interval: 140 QT Interval: 464 QTC Interval: 476 P [place]: 50 QRS [place]: -3 T Wave [place]: 8 EKG Severity - ABNORMAL ECG - EKG Impression: SINUS RHYTHM EKG Impression: FIRST DEGREE AV BLOCK EKG Impression: RIGHT BUNDLE BRANCH BLOCK Electronically Signed By: Evangelista Rico 28-May-2018 16:18:00
[2018-05-25] MEDS ORDERED: MAGNESIUM SULF 2 GM/WATER 50 ML IV ONE (17:30)
[2018-05-25] MEDS: METOPROLOL SUCCINATE XR 25 MG TAB PO SCH (18:28)
[2018-05-25] MEDS: INSULIN LISPRO 100 UNIT/ML SC SCH (19:42)
[2018-05-25] MEDS: APIXABAN 5 MG TAB PO SCH (20:33)
[2018-05-25] MEDS ORDERED: VALSARTAN 160 MG TAB PO SCH (21:00)
[2018-05-25] MEDS ORDERED: ATORVASTATIN CALCIUM 20 MG TAB PO SCH (21:00)
[2018-05-25] MEDS ORDERED: FENOFIBRATE 145 MG TAB PO SCH (21:00)
[2018-05-25] MEDS ORDERED: ACETAMINOPHEN 325 MG TAB PO PRN (21:40)
[2018-05-26 06:16] LABS: PLATELET COUNT 247 10^3/uL (150-400)
--- NOTE | 2018-05-26 08:24 | CPEKG ---
Heart Rate: 60 RR Interval: 1000 P-R Interval: 276 QRSD Interval: 98 QT Interval: 452 QTC Interval: 452 P [place]: 37 QRS [place]: -18 T Wave [place]: 17 EKG Severity - ABNORMAL ECG - EKG Impression: SINUS RHYTHM EKG Impression: FIRST DEGREE AV BLOCK EKG Impression: BORDERLINE LEFT AXIS DEVIATION Electronically Signed By: Evangelista Rico 28-May-2018 16:17:43
[2018-05-26] MEDS: APIXABAN 5 MG TAB PO SCH (08:39)
[2018-05-26] MEDS: METOPROLOL SUCCINATE XR 25 MG TAB PO SCH (08:39)
[2018-05-26] MEDS: INSULIN LISPRO 100 UNIT/ML SC SCH (08:40)
[2018-05-26] MEDS ORDERED: ASPIRIN EC 81 MG TAB PO SCH (09:00)
[2018-05-26] MEDS ORDERED: buPROPion XL 150 MG TAB PO SCH (09:00)
[2018-05-26] MEDS ORDERED: INSULIN GLARGINE 100 UNITS/ML UNIT SC SCH (09:00)
--- NOTE | 2018-05-26 09:11 | ASMTCMCOM ---
CM Note CM Note Notes: 72yr old female admitted for Daniel, Hypoglycemia, Hypothermia, PNA. Has a Hx of Stroke, DM, HTN, Bilta mastectomy. Had a pacemaker placed. Daughter, Samara involved. Therapies to eval. CM to follow. Date Signed: 05/26/2018 09:10 AM Electronically Signed By:Ashley Johnson LCSW
[2018-05-26] MEDS ORDERED: DOCUSATE SODIUM 100 MG CAP PO PRN (09:46)
[2018-05-26 10:07] VITALS: BP 136/60
--- NOTE | 2018-05-26 12:31 | GDS ---
[f rep st] DISCHARGE SUMMARY SUPERVISING ADMINISTRATIVE ASST: Alexi Estrada MD ADMISSION DIAGNOSES: 1. Near-syncope, with noted pauses up to 5 seconds on recent Holter monitoring. 2. Paroxysmal atrial fibrillation. 3. Diabetes. 4. Hypertension. 5. Hyperlipidemia. DISCHARGE DIAGNOSES: 1. Status post permanent pacemaker, leadless Medtronic Micra RV pacer. 2. Paroxysmal atrial fibrillation. 3. Diabetes. 4. Hypertension. 5. Hyperlipidemia. PROCEDURES PERFORMED DURING HOSPITALIZATION: 1. Electrocardiogram. 2. Leadless Medtronic RV pacer implantation. 3. Chest x-ray. BRIEF HISTORY: Please see H and P. Briefly, the patient is a 72-year-old female with significant hi story of paroxysmal atrial fibrillation. She has been noted to have episodes of lightheadedness with near-syncope. She did undergo Holter monitoring, which was noted to have up to 5-second pauses. Sh e has been noting in the past beta-blockers control her ventricular rate and rhythm. Patient was see n by Dr. Estrada in consultation, who felt the best way to proceed was pacemaker implantation. HOSPITAL COURSE: Patient was admitted through CVC, prepped for procedure, and taken to electrophysio logy lab. There, Dr. Estrada successfully implanted a Medtronic Mellisa leadless pacemaker in her RV septum via right femoral groin approach. No complications. Patient was transferred to the ICU for overnig ht observation. During the evening, she was noted to have a brief run of paroxysmal atrial fibrillat ion. She was restarted on her beta-blockers, and anticoagulation was resumed. Since then, she has b een stable, she has been up and walking the unit without difficulties. Denying any chest pain, short ness of breath, or symptoms suggestive of ischemia. She denies any lightheadedness. Reports no palp itations. PHYSICAL EXAMINATION: Done today. GENERAL APPEARANCE: A medium built, well-groomed femal e. She is alert and oriented to person, place, time, and situation. Appears to be under no acute di stress. CURRENT VITAL SIGNS: Blood pressure of 136/60, heart rate of 84 (sinus rhythm on the monito r), respirations are 16, saturating 94% on room air. Temperature this morning was 36.7 degrees Celsi us. HEENT: Head is normocephalic. Lips and tongue are pink and moist, with no signs of cyanosis. Conjunctivae are pink. NECK: Trachea is midline, +2 carotid pulses bilaterally. No auscultated bru its. No jugular vein distention. RESPIRATORY: Lungs are clear to auscultation. No rhonchi, rales or wheezes. No accessory muscle use. No intercostal muscle retraction noted. CARDIAC: Regular rat e, regular rhythm. S1, S2. No S3, S4, gallops, rubs, or murmurs noted. ABDOMEN: Soft, nontender. Bowel sounds x4 quadrants. No organomegaly. No palpable masses. SKIN: Plover, warm, dry. No cyano sis. No clubbing. No peripheral edema. VASCULAR: +2 carotids bilaterally, +2 radials bilaterally, +1 dorsal pedal and posterior tibial pulses bilaterally. Pacemaker insertion site, right groin site , suture removed, with no redness, swelling, drainage, ecchymosis, or hematoma. No auscultated bruit over site. CMS checks within normal limits right lower extremity. LABORATORY STUDIES: Drawn today: Show WBC of 10.23, hemoglobin 11.4, hematocrit of 35.1, platelet c ount of 247. Sodium of 138, potassium 4.3, chloride 107, CO2 25, BUN 22, creatinine 1.1. Glucose 23 4. Calcium 8.4. PROCEDURES: Electrophysiology pacemaker implantation procedure as mentioned above. AM chest x-ray s howing RV pacemaker and proper placement, without delayed pneumothorax. No acute cardiopulmonary pro cess. Morning electrocardiogram showed sinus rhythm with first-degree AV block, borderline left axis deviat ion. Nonspecific T-wave abnormalities in inferior leads. Device interrogation done this morning by Siriona rep, showing device functioning within normal foster its. DISCHARGE DISPOSITION: Patient will be discharged home in stable condition. She is under activity r estriction of not lifting more than 10 pounds for the next week, and no strenuous activities for the next 2 weeks. DISCHARGE MEDICATIONS: Please see discharge medication reconciliation sheet. Note, patient has been resumed on home dose of Eliquis and the rest of her home medications. DISCHARGE INSTRUCTIONS: Post pacemaker leadless device discharge instructions went over, including a ctivity restrictions, monitoring for signs of infection, bleeding precautions, and medication complia ncy. Patient has also been encouraged to not strain with bowel movements, and has been recommended t o start using laxatives as needed. Patient has a device and wound check scheduled for next week, and she will follow up with her primary wire galvanizer, Dr Fountain, in the beginning of June. At the time of discharge, patient verbalizes understanding of all instructions and has no questions or concerns. Total time spent on discharge greater than 30 minutes. /[id number]/MODL
== END 2018-05-26 10:25 | disposition home or self-care (01) ==
LOC: FCATH 08:28 → F2N 13:05
PROVIDERS: ADMIT Internal Medicine Cardiovascular Disease; ATTEND Internal Medicine Cardiovascular Disease
PROC: 5A1213Z Performance of Cardiac Pacing, Intermittent (ICD-10-PCS; principal; 2018-05-25)
PROC: 02H63MZ Insertion of Cardiac Lead into Right Atrium, Percutaneous Approach (ICD-10-PCS; principal; 2018-05-25)
PROC: 02HK3MZ Insertion of Cardiac Lead into Right Ventricle, Percutaneous Approach (ICD-10-PCS; principal; 2018-05-25)
PROC: 4A0234Z Measurement of Cardiac Electrical Activity, Percutaneous Approach (ICD-10-PCS; principal; 2018-05-25)
DX: R55 Syncope and collapse (principal); I48.0 Paroxysmal atrial fibrillation; E11.9 Type 2 diabetes mellitus without complications; I10 Essential (primary) hypertension; E78.5 Hyperlipidemia, unspecified
CPT/HCPCS: 0387T; 71045; 93005; 93619; C1731; J0690; J1100; J1644; J1815; J2250; J2370; J2405; J2704; J2720; J3010; J3475; Q9967

== ENCOUNTER → 2018-09-09 | Outpatient (CLI) | payer OTHER, MEDICARE | LOC: BHFA 09:30 | PROVIDERS: ATTEND Internal Medicine Cardiovascular Disease | DX: I25.10 Atherosclerotic heart disease of native coronary artery without angina pectoris (principal) | CPT/HCPCS: 78452; 93017; A9500; J2785 ==